=== PATIENT | female | born 1945 | race Caucasian/White ===

== ENCOUNTER 2022-04-05 12:19 | Inpatient (IN) ==
[2022-04-05 12:49] LABS: Hematocrit 22 % (35-47); Hemoglobin 7.2 g/dL (12.0-16.0); Mean Corpuscular HGB Conc 33 g/dL (31-36); Mean Corpuscular Hemoglobin 33 pg (27-31); Mean Corpuscular Volume 98 fL (80-97); Mean Platelet Volume 8.4 fL (7.4-10.4); Platelet Count 89 10^3/uL (150-450); Red Cell Distribution Width 25 % (10-15); White Blood Count 1.7 10^3/uL (3.5-10.8)
[2022-04-05 12:52] LABS: INR 1.45 (0.89-1.11)
[2022-04-05 13:20] LABS: Albumin 3.9 g/dL (3.2-5.2); Albumin/Globulin Ratio 1.1 (1-3); Globulin 3.6 g/dL (2-4); Potassium 4.2 mmol/L (3.5-5.0); Total Bilirubin 3.4 mg/dL (0.2-1.0); Total Protein 7.5 g/dL (6.4-8.9); eGFR CKD-EPI 88.1 (>60)
[2022-04-05 13:38] LABS: RBC Morphology Normal (Normal)
[2022-04-05 13:41] LABS: ABS Lymphocytes 0.5 10^3/ul (1.0-4.8)
[2022-04-05 14:24] LABS: High Sensitivity Troponin 1 Hr 3 pg/mL (<15)
[2022-04-05] MEDS ORDERED: NS 0.9% 1000 ml BAG 1,000 ML IV ONE (16:50)
[2022-04-05] MEDS ORDERED: Iohexol 350 (CONTRAST) 500 ML MDV IV ONE (17:14)
[2022-04-05 22:33] LABS: C Reactive Protein 12.92 mg/L (<8.01)
[2022-04-06 00:20] LABS: Ferritin 373.5 ng/mL (11-307)
[2022-04-06] MEDS: Albuterol 2.5mg/3 ml (0.083%) NEB.SOLN INH PRN ×4 (06:00→22:29)
[2022-04-06 06:12] LABS: ABS Basophils 0.1 10^3/ul (0-0.2); ABS Lymphocytes 0.5 10^3/ul (1.0-4.8); ABS Monocytes 0.3 10^3/ul (0-0.8); ABS Neutrophils 1.3 10^3/ul (1.5-7.7); Eosinophil % 1.9 %; Hematocrit 26 % (35-47); Hemoglobin 8.8 g/dL (12.0-16.0); Lymphocyte % 21.9 %; Mean Corpuscular HGB Conc 35 g/dL (31-36); Mean Corpuscular Hemoglobin 32 pg (27-31); Mean Corpuscular Volume 92 fL (80-97); Mean Platelet Volume 8.5 fL (7.4-10.4); Nucleated Red Blood Cells % 0.1; Platelet Count 78 10^3/uL (150-450); Red Blood Count 2.77 10^6 /uL (3.70-4.87); Red Cell Distribution Width 22 % (10-15); White Blood Count 2.2 10^3/uL (3.5-10.8)
[2022-04-06 06:54] LABS: Albumin 3.7 g/dL (3.2-5.2); Calcium 8.8 mg/dL (8.6-10.3); Direct Bilirubin 0.7 mg/dL (0.03-0.18); Globulin 3.6 g/dL (2-4); Indirect Bilirubin 4.6 mg/dL (0.3-1.0); Potassium 4.2 mmol/L (3.5-5.0); Total Bilirubin 5.3 mg/dL (0.2-1.0); Total Protein 7.3 g/dL (6.4-8.9); eGFR CKD-EPI 90.5 (>60)
[2022-04-06 09:47] LABS: Corrected Retic Count 1.1 % (0.5-1.5); Hematocrit for Retic CNT 26 % (35-47); Immature Retic Fraction 0.48
[2022-04-06 10:17] LABS: RBC Parasite Smear No Parasites Seen (No Parasite)
[2022-04-07 05:01] LABS: ABS Basophils 0.1 10^3/ul (0-0.2); ABS Lymphocytes 0.4 10^3/ul (1.0-4.8); ABS Monocytes 0.3 10^3/ul (0-0.8); ABS Neutrophils 1.1 10^3/ul (1.5-7.7); Eosinophil % 1.5 %; Hematocrit 25 % (35-47); Hemoglobin 8.4 g/dL (12.0-16.0); Lymphocyte % 19.6 %; Mean Corpuscular HGB Conc 34 g/dL (31-36); Mean Corpuscular Hemoglobin 31 pg (27-31); Mean Corpuscular Volume 93 fL (80-97); Mean Platelet Volume 8.7 fL (7.4-10.4); Nucleated Red Blood Cells % 0.1; Platelet Count 81 10^3/uL (150-450); Red Blood Count 2.69 10^6 /uL (3.70-4.87); Red Cell Distribution Width 23 % (10-15); White Blood Count 1.8 10^3/uL (3.5-10.8)
[2022-04-07 05:04] LABS: Albumin 3.6 g/dL (3.2-5.2); Albumin/Globulin Ratio 1.1 (1-3); Calcium 8.7 mg/dL (8.6-10.3); Globulin 3.4 g/dL (2-4); Potassium 3.9 mmol/L (3.5-5.0); eGFR CKD-EPI 91.5 (>60)
[2022-04-07 09:25] LABS: Folate 16.48 ng/mL (5.90-24.80)
[2022-04-07] MEDS: Albuterol 2.5mg/3 ml (0.083%) NEB.SOLN INH PRN (09:32)
[2022-04-07 10:03] LABS: TSH Ultra Thyroid Stim Horm 0.7 mcIU/mL (0.34-5.60)
[2022-04-07 12:34] LABS: Haptoglobin <14 mg/dL (30 - 200)
[2022-04-08 06:19] LABS: Hematocrit 27 % (35-47); Hemoglobin 8.7 g/dL (12.0-16.0); Mean Corpuscular HGB Conc 33 g/dL (31-36); Mean Corpuscular Hemoglobin 31 pg (27-31); Mean Corpuscular Volume 93 fL (80-97); Mean Platelet Volume 8.6 fL (7.4-10.4); Platelet Count 86 10^3/uL (150-450); Red Blood Count 2.87 10^6 /uL (3.70-4.87); Red Cell Distribution Width 22 % (10-15); White Blood Count 1.9 10^3/uL (3.5-10.8)
[2022-04-08 06:37] LABS: Calcium 8.7 mg/dL (8.6-10.3); eGFR CKD-EPI 91.2 (>60)
[2022-04-08 07:11] VITALS: BP 103/54
[2022-04-08 07:50] LABS: Direct Bilirubin 0.5 mg/dL (0.03-0.18); Indirect Bilirubin 2.9 mg/dL (0.3-1.0); Total Bilirubin 3.4 mg/dL (0.2-1.0)
[2022-04-08] MEDS: Albuterol 2.5mg/3 ml (0.083%) NEB.SOLN INH PRN (07:53)
[2022-04-08 09:31] LABS: ABS Basophils 0.1 10^3/ul (0-0.2); ABS Lymphocytes 0.5 10^3/ul (1.0-4.8); ABS Monocytes 0.2 10^3/ul (0-0.8); ABS Neutrophils 1.1 10^3/ul (1.5-7.7); Eosinophil % 1.3 %; Lymphocyte % 26.8 %; Nucleated Red Blood Cells % 0.4
[2022-04-08 13:50] LABS: Lambda Free Light Chain, S 4.73 mg/dL
[2022-04-08 14:36] LABS: Immunoglobulin A 912 mg/dL (61 - 356); Immunoglobulin G 1700 mg/dL (767 - 1590); Immunoglobulin M 101 mg/dL (37 - 286)
[2022-04-08 16:31] LABS: Albumin 3.2 g/dL (3.4-4.7); Albumin/Globulin Ratio 0.76; Gamma Globulin 2.5 g/dL (0.6-1.6); Total Protein(PEP) 7.5 g/dL (6.3 - 7.9)
[2022-04-08 20:16] LABS: Anaplasma phagocytophilum Negative (Negative); B. miyamotoi PCR, B Negative (Negative); Babesia divergens/MO-1 Negative (Negative); Babesia ducani Negative (Negative); Ehrlichia chaffeensis Negative (Negative); Ehrlichia ewingii/canis Negative (Negative); Ehrlichia muris eauclairensis Negative (Negative)
== END 2022-04-08 12:10 | disposition home or self-care (01) | DRG 810 ==
LOC: EDHOLD 12:19 → ED 12:19 → SUATTDRO 21:45 → EDHOLD 04-06 04:04 → MED 04-06 04:31
PROVIDERS: ADMIT Internal Medicine; ATTEND Internal Medicine

== ENCOUNTER 2022-11-26 17:23 | Inpatient (IN) ==
[2022-11-26 18:13] LABS: INR 2.14 (0.88-1.18)
[2022-11-26 18:41] LABS: ABS Lymphocytes 0.1 10^3/uL (1.0-4.8); Eosinophil % 3.3 %; Hematocrit 20.8 % (35-45); Hemoglobin 7.3 g/dL (11.5-14.3); Lymphocyte % 59.8 %; Mean Corpuscular Hemoglobin 29.9 pg (27-33); Mean Corpuscular Hgb Conc 35.2 g/dL (31-36); Mean Corpuscular Volume 84.7 fL (80-97); Mean Platelet Volume 8.5 fL (7.5-11.2); Platelet Count 17 10^3/uL (150-450); Red Blood Count 2.46 10^6/uL (3.63-4.92); Red Cell Distribution Width 15.4 % (12-17); White Blood Count 0.1 10^3/uL (3.8-11.8)
[2022-11-26 18:48] LABS: Albumin 3.2 g/dL (3.2-5.2); Albumin/Globulin Ratio 1.1 (1-3); Calcium 8.2 mg/dL (8.6-10.3); Creatinine, Serum 0.52 mg/dL (0.51-0.95); Direct Bilirubin 1.1 mg/dL (0.03-0.18); Globulin 2.9 g/dL (2-4); Indirect Bilirubin 5.5 mg/dL (0.3-1.0); Potassium 4.3 mmol/L (3.5-5.0); Total Bilirubin 6.6 mg/dL (0.2-1.0); Total Protein 6.1 g/dL (6.4-8.9); eGFR CKD-EPI 96.2 (>60)
[2022-11-26] MEDS ORDERED: Piperacillin/Tazobac ADVAN 3.375 GM in NS 0.9% 100 ml BAG 100 ML IV ONE (18:55)
[2022-11-26] MEDS ORDERED: Enoxaparin 40 MG/0.4 ML SYR SUBCUT SCH (19:00)
[2022-11-26] MEDS ORDERED: Zosyn per Pharmacy NOTE FOLLOW UP SCH (19:00)
[2022-11-26] MEDS ORDERED: Ondansetron 4 mg VIAL 2 MG/ML 2 ml VIAL IV ONE (19:36)
[2022-11-26] MEDS ORDERED: Lactated Ringers 1000 ml BAG 1,000 ML IV ONE ×2 (19:38→20:17)
[2022-11-26] MEDS ORDERED: Ondansetron 4 mg VIAL 2 MG/ML 2 ml VIAL ONE (19:44)
[2022-11-26 19:51] LABS: Platelet Count 16 10^3/ul (150-450)
[2022-11-26 19:55] LABS: Activated Partial Thrombo Time 38.1 seconds (26.0-38.0); INR 2.08 (0.88-1.18)
[2022-11-26] MEDS ORDERED: Prochlorperazine 5 mg/ml 2 ml VIAL (10 mg) IV ONE (20:18)
[2022-11-26 20:20] LABS: Schistocytes ABSENT
[2022-11-26] MEDS ORDERED: Lidocaine 2.5%/Prilocain 2.5% 5 GM TUBE TOPICAL PRN (21:11)
[2022-11-26] MEDS ORDERED: CMCS:Tranexamic Acid 650 MG TAB (NF) PO PRN (21:11)
[2022-11-26] MEDS ORDERED: Iohexol 350 (CONTRAST) 500 ML MDV IV ONE (21:58)
[2022-11-26] MEDS ORDERED: ZOSYN 3.375 GM Q8H per EXTENDED INFUSION IV SCH (23:00)
[2022-11-26] MEDS ORDERED: Magnesium Sulfate 2 gm BAG 2 GM/50 ML BAG IVPB ONE (23:13)
[2022-11-27] MEDS: Ondansetron 4 mg VIAL 2 MG/ML 2 ml VIAL IV PRN (00:19)
[2022-11-27] MEDS ORDERED: ZOSYN 3.375 GM Q8H per EXTENDED INFUSION IV SCH (01:00)
[2022-11-27] MEDS: Prochlorperazine 5 mg/ml 2 ml VIAL (10 mg) IV PRN ×2 (01:05→12:10)
[2022-11-27 01:10] LABS: Urine Appearance Clear; Urine Bilirubin Negative (Negative); Urine Blood 1+ (Negative); Urine Color Yellow; Urine Glucose Negative (Negative); Urine Ketones Negative (Negative); Urine Nitrite Negative (Negative); Urine Protein Negative (Negative); Urine Specific Gravity 1.059 (1.002-1.030); Urine Urobilinogen Positive (Negative)
[2022-11-27 01:12] LABS: Urine Bacteria Absent (Absent); Urine Red Blood Cell Trace(0-2/hpf) (Absent); Urine White Blood Cell Trace(0-5/hpf) (Absent)
[2022-11-27] MEDS ORDERED: Lactated Ringers 1000 ml BAG 500 ML IV ONE (01:13)
[2022-11-27] MEDS: Acetaminophen IV 1 GM/100ML 500 MG/50 ML BAG IV PRN ×2 (01:17→13:25)
[2022-11-27] MEDS ORDERED: Lactated Ringers 1000 ml BAG 1,000 ML IV ONE ×2 (02:01→05:05)
[2022-11-27] MEDS ORDERED: Vancomycin per Pharmacy 1 EA NOTE FOLLOW UP PRN (02:14)
[2022-11-27] MEDS: Cefepime 2 GM in Dextrose 2 GM/50 ML BAG IV SCH ×3 (02:48→17:47)
[2022-11-27] MEDS ORDERED: Vancomycin 1,000 MG in NS 0.9% 250 ml 250 ML IVPB ONE (03:00)
[2022-11-27 05:58] LABS: Hematocrit 18.1 % (35-45); Hemoglobin 6.4 g/dL (11.5-14.3); Mean Corpuscular Hemoglobin 29.8 pg (27-33); Mean Corpuscular Hgb Conc 35.4 g/dL (31-36); Mean Platelet Volume 8.8 fL (7.5-11.2); Platelet Count 13 10^3/uL (150-450); Red Blood Count 2.16 10^6/uL (3.63-4.92); Red Cell Distribution Width 15.5 % (12-17); White Blood Count 0.1 10^3/uL (3.8-11.8)
[2022-11-27 06:06] LABS: INR 2.28 (0.88-1.18)
[2022-11-27 06:14] LABS: ABS Lymphocytes 0.1 10^3/uL (1.0-4.8); Eosinophil % 2.9 %; Lymphocyte % 68.5 %; Nucleated Red Blood Cells % 1.3 /100 WBC (0.0-0.4)
[2022-11-27 07:02] LABS: Albumin 2.8 g/dL (3.2-5.2); Calcium 8.1 mg/dL (8.6-10.3); Creatinine, Serum 0.62 mg/dL (0.51-0.95); Globulin 2.9 g/dL (2-4); Magnesium 2.2 mg/dL (1.9-2.7); Potassium 4.2 mmol/L (3.5-5.0); Total Bilirubin 6.3 mg/dL (0.2-1.0); Total Protein 5.7 g/dL (6.4-8.9); eGFR CKD-EPI 92.2 (>60)
[2022-11-27 07:23] LABS: Urine Appearance Clear; Urine Bilirubin Negative (Negative); Urine Blood 1+ (Negative); Urine Color Amber; Urine Glucose Negative (Negative); Urine Ketones Negative (Negative); Urine Nitrite Negative (Negative); Urine Protein Negative (Negative); Urine Specific Gravity 1.043 (1.002-1.030); Urine Urobilinogen Negative (Negative)
[2022-11-27 07:33] LABS: Urine Bacteria Absent (Absent); Urine Red Blood Cell 1+(3-5/hpf) (Absent); Urine Squamous Epithelial Cell Present (Absent); Urine White Blood Cell Trace(0-5/hpf) (Absent)
[2022-11-27] MEDS: Vancomycin 750 MG in NS 0.9% 250 ML IVPB SCH ×2 (13:24→20:19)
[2022-11-27 13:30] LABS: Hematocrit 21.7 % (35-45); Hemoglobin 7.6 g/dL (11.5-14.3); Mean Corpuscular Hemoglobin 29.9 pg (27-33); Mean Corpuscular Hgb Conc 35.1 g/dL (31-36); Mean Corpuscular Volume 85.2 fL (80-97); Mean Platelet Volume 8.9 fL (7.5-11.2); Platelet Count 13 10^3/uL (150-450); Red Blood Count 2.55 10^6/uL (3.63-4.92); White Blood Count 0.1 10^3/uL (3.8-11.8)
[2022-11-27 14:02] LABS: Ferritin 2464.1 ng/mL (11-307)
[2022-11-27 14:17] LABS: ABS Lymphocytes 0.1 10^3/uL (1.0-4.8); ABS Nucleated RBC 0.01 10^3/ul; Nucleated Red Blood Cells % 5.6 /100 WBC (0.0-0.4)
[2022-11-28] MEDS: Ondansetron 4 mg VIAL 2 MG/ML 2 ml VIAL IV PRN ×3 (00:51→15:03)
[2022-11-28] MEDS: Acetaminophen IV 1 GM/100ML 500 MG/50 ML BAG IV PRN ×3 (02:28→17:03)
[2022-11-28] MEDS: Cefepime 2 GM in Dextrose 2 GM/50 ML BAG IV SCH ×3 (02:56→18:02)
[2022-11-28 04:56] LABS: Hematocrit 17.9 % (35-45); Hemoglobin 6.3 g/dL (11.5-14.3); Mean Corpuscular Hemoglobin 29.9 pg (27-33); Mean Corpuscular Hgb Conc 35.3 g/dL (31-36); Mean Corpuscular Volume 84.6 fL (80-97); Mean Platelet Volume 8.9 fL (7.5-11.2); Platelet Count 10 10^3/uL (150-450); Red Blood Count 2.11 10^6/uL (3.63-4.92); Red Cell Distribution Width 14.8 % (12-17); White Blood Count 0.1 10^3/uL (3.8-11.8)
[2022-11-28] MEDS ORDERED: Vancomycin Trough Check NOTE FOLLOW UP ONE (05:00)
[2022-11-28] MEDS ORDERED: Lactated Ringers 1000 ml BAG 1,000 ML IV ONE (05:05)
[2022-11-28 05:38] LABS: Albumin 2.6 g/dL (3.2-5.2); Potassium 4.5 mmol/L (3.5-5.0); Total Bilirubin 5.3 mg/dL (0.2-1.0)
[2022-11-28 05:39] LABS: ABS Lymphocytes 0.1 10^3/uL (1.0-4.8); Eosinophil % 0.2 %; Lymphocyte % 80.2 %; Nucleated Red Blood Cells % 2.7 /100 WBC (0.0-0.4)
[2022-11-28 05:42] LABS: Creatinine, Serum 0.74 mg/dL (0.51-0.95); Globulin 2.7 g/dL (2-4); Total Protein 5.3 g/dL (6.4-8.9); Vancomycin Trough 10.5 mcg/mL; eGFR CKD-EPI 83.8 (>60)
[2022-11-28] MEDS: Vancomycin 750 MG in NS 0.9% 250 ML IVPB SCH ×3 (07:45→21:48)
[2022-11-28 17:10] VITALS: BP 118/63
[2022-11-29] MEDS: Cefepime 2 GM in Dextrose 2 GM/50 ML BAG IV SCH ×2 (02:35→11:54)
[2022-11-29] MEDS: Morphine ORAL CONCENTRATE 5 MG/0.25 ML ORAL.SYRIN PO PRN ×5 (02:38→21:49)
[2022-11-29] MEDS: Vancomycin 750 MG in NS 0.9% 250 ML IVPB SCH ×2 (05:26→14:12)
[2022-11-29] MEDS ORDERED: Vancomycin Trough Check NOTE FOLLOW UP ONE (13:00)
[2022-11-29 13:59] LABS: Creatinine, Serum 0.5 mg/dL (0.51-0.95); Vancomycin Trough 11.7 mcg/mL; eGFR CKD-EPI 97.1 (>60)
[2022-11-30] MEDS: Morphine ORAL CONCENTRATE 5 MG/0.25 ML ORAL.SYRIN PO PRN ×10 (02:31→23:57)
[2022-12-01] MEDS: Atropine 1% OPHTH.SOL 1 DROP BTL 2-5 ML SL PRN ×7 (00:39→21:53)
[2022-12-01] MEDS: Morphine ORAL CONCENTRATE 5 MG/0.25 ML ORAL.SYRIN PO PRN ×8 (01:25→23:16)
[2022-12-02] MEDS: Morphine ORAL CONCENTRATE 5 MG/0.25 ML ORAL.SYRIN PO PRN ×7 (00:36→11:09)
[2022-12-02] MEDS: Atropine 1% OPHTH.SOL 1 DROP BTL 2-5 ML SL PRN ×4 (00:37→09:36)
== END 2022-12-02 12:45 | disposition hospice, home (50) | DRG 871 ==
LOC: ED 17:23 → SUATTDRO 18:39 → EDHOLD 18:39 → MED 22:35
PROVIDERS: ADMIT Student in an Organized Health Care Education/Training Program; ATTEND Internal Medicine